=== PATIENT | male | born 1995 | race Caucasian/White ===

== ENCOUNTER 2017-05-04 14:32 | Emergency (ER) | payer SELFPAY ==
--- NOTE | 2017-05-04 15:55 | RAD ---
INDICATION: Right hand injury. TECHNIQUE: 4 views of the right hand were obtained. FINDINGS: The bones are in normal alignment. No fracture is seen. Joint spaces appear maintained. IMPRESSION: NO EVIDENCE FOR FRACTURE, IF THE PATIENT'S SYMPTOMS PERSIST, RECOMMEND FOLLOW-UP IMAGING.
--- NOTE | 2017-05-04 16:11 | ED ---
Upper Extremity Pain - HPI Summary HPI Summary: Rt hand dominant pt here w/ Rt hand injury - fell forward onto hand 2-3 days ago - tripped over lip of doorway and went forward. Denies numbness, tingling, weakness - has pain with ulnar deviation in hand and soreness at base of hand w / movement - NTTP. No bruising, no laceration. No other injuries to report. Iced the night it happened. No therapies since. - History of Current Complaint Chief Complaint: EDExtremityUpper Stated Complaint: HAND INJURY Time Seen by Provider: 05/04/17 15:16 Hx Obtained From: Patient PMH/Surg Hx/FS Hx/Imm Hx Previously Healthy: Yes Endocrine/Hematology History: Denies: Hx Anticoagulant Therapy, Hx Blood Disorders - Immunization History Immunizations Up to Date: Yes Infectious Disease History: No Infectious Disease History: Denies: Hx of Known/Suspected MRSA, Traveled Outside the in Last 30 Days - Family History Known Family History: Positive: None - Social History Occupation: Student Lives: With Family - roommates Alcohol Use: Weekly Hx Substance Use: No Substance Use Type: Reports: None Hx Tobacco Use: No Smoking Status (MU): Never Smoked Tobacco Review of Systems Constitutional: Negative Eyes: Negative Negative: Photophobia, Blurred Vision ENT: Negative Negative: Dental Pain Cardiovascular: Negative Negative: Chest Pain Respiratory: Negative Negative: Shortness Of Breath Gastrointestinal: Negative Negative: Vomiting, Nausea Positive: no symptoms reported Musculoskeletal: Other - see HPI Skin: Negative Neurological: Negative Negative: Headache, Weakness, Paresthesia, Numbness, Syncope, Slurred Speech Psychological: Normal All Other Systems Reviewed And Are Negative: Yes Physical Exam Triage Information Reviewed: Yes Vital Signs On Initial Exam: Initial Vitals Temp Pulse Resp BP Pulse Ox 98 F 75 17 148/75 100 05/04/17 14:57 05/04/17 14:57 05/04/17 14:57 05/04/17 14:57 05/04/17 14:57 Vital Signs Reviewed: Yes Appearance: Positive: Well-Appearing, No Pain Distress, Well-Nourished Skin: Positive: Warm, Dry - healed tiny abrasions on Rt palmar aspect of hand - no edema, no erythema, no streaking Head/Face: Positive: Normal Head/Face Inspection Eyes: Positive: EOMI ENT: Positive: Hearing grossly normal Respiratory/Lung Sounds: Positive: Breath Sounds Present Cardiovascular: Positive: Pulses are Symmetrical in both Upper and Lower Extremities Musculoskeletal: Positive: Strength/ROM Intact, Other - pain w/ full gripping of Rt hand. Negative: Pain @ - phalanges, MC, carpals and forearm are all NTTP Neurological: Positive: Normal, Sensory/Motor Intact, Alert, Oriented to Person Place, Time, CN Intact II-III Psychiatric: Positive: Normal Diagnostics - Vital Signs Vital Signs Temp Pulse Resp BP Pulse Ox 05/04/17 14:57 98 F 75 17 148/75 100 - Laboratory Lab Statement: Any lab studies that have been ordered have been reviewed, and results considered in the medical decision making process. Course/Dx - Diagnoses Provider Diagnoses: Sprain of right hand Discharge - Discharge Plan Condition: Stable Disposition: HOME Patient Education Materials: Hand Sprain (ED) Referrals: [facility] [Outside] Additional Instructions: Rest, ice, elevate as needed for pain/swelling You may take ibuprofen with food for pain *If you have persistent pain in 1 week, follow-up with [facility]
[2017-05-04 17:07] VITALS: BP 136/53
== END 2017-05-04 17:07 | disposition home or self-care (01) ==
LOC: ED 14:32
DX: S63.91XA Sprain of unspecified part of right wrist and hand, initial encounter (principal); W19.XXXA Unspecified fall, initial encounter; Y93.9 Activity, unspecified; Y92.9 Unspecified place or not applicable
CPT/HCPCS: 99281